=== PATIENT | male | born 1985 | race Two or more races ===

== ENCOUNTER 2020-08-27 13:14 | Emergency (ER) | payer SELFPAY ==
--- NOTE | 2020-08-27 14:44 | CR ---
PROCEDURE INFORMATION: Exam: XR Lumbosacral Spine Exam date and time: 08/27/2020 2:13 PM Age: 35 years old Clinical indication: Injury or trauma; Other: Lifting/twisting injury; Work related; Sprain or strain, lumbar ligaments; Patient HX: Twisting injury, left sided low back pain with left sided radiculapathy. ; Additional info: Low back pain with sciatica TECHNIQUE: Imaging protocol: XR of the lumbosacral spine. Views: 2 or 3 views. COMPARISON: No relevant prior studies available. FINDINGS: Bones/joints: Minimal narrowing with endplate osteophyte formation L4-L5 and L5-S1.. No acute fracture. Normal alignment. Soft tissues: Unremarkable. IMPRESSION: No acute findings.
[2020-08-27] MEDS ORDERED: Ketorolac 30 MG/ML SDV IM ONE (15:16)
--- NOTE | 2020-08-27 15:22 | EDM.PDOC ---
ED HPI GENERAL MEDICAL PROBLEM - General Chief Complaint: Back Pain or Injury Stated Complaint: [id number] PULLED SOMETHING IN BACK AT WORK Time Seen by Provider: 08/27/20 15:05 Source of Information: Reports: Patient, RN, RN Notes Reviewed History Limitations: Reports: No Limitations - History of Present Illness INITIAL COMMENTS - FREE TEXT/NARRATIVE: Vin is a 35 y/o male who presents to the ED via personal vehicle with complaints of low back pain. 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 He notes the pain waxes and wanes in severity and characterizes it as a sharp stab when it is the worst. He has taken one dose of Ibuprofen and one dose of Tylenol which has offered him slight, transient alleviation of pain. He denies history of back injury. He denies loss of motor or sensory function. He denies saddle paraesthesia or incontinence of bowel/bladder. - Related Data Allergies Allergy/AdvReac Type Severity Reaction Status Date / Time egg Allergy Vomiting Verified 08/27/20 15:19 Home Meds: Home Meds . [No Known Home Meds] 08/27/20 [History] ED ROS GENERAL - Review of Systems Review Of Systems: Comprehensive ROS is negative, except as noted in HPI. ED EXAM,LOWER BACK PAIN/INJURY - Physical Exam Exam: See Below Exam Limited By: No Limitations General Appearance: Alert, No Apparent Distress Throat/Mouth: Normal Inspection, Normal Oropharynx, Normal Voice, No Airway Compromise Respiratory/Chest: No Respiratory Distress, Lungs Clear, Normal Breath Sounds, No Accessory Muscle Use, Chest Non-Tender Cardiovascular: Normal Peripheral Pulses, Regular Rate, Rhythm, No Edema, No Gallop, No JVD, No Murmur, No Rub GI/Abdominal: Normal Bowel Sounds, Soft, Non-Tender, No Distention, No Abnormal Bruit, No Mass, Pelvis Stable (Male) Exam: Deferred Rectal (Males) Exam: Deferred Back Exam: Decreased Range of Motion, Muscle Spasm. No: CVA Tenderness (L), CVA Tenderness (R), Paraspinal Tenderness, Vertebral Tenderness Extremities: Normal Inspection, Normal Range of Motion, Non-Tender, No Pedal Edema, Normal Capillary Refill. No: Joint Swelling Neurological: Alert, Normal Mood/Affect, Normal Dorsiflexion, CN II-XII Intact, Normal Plantar Flexion, Normal Gait, Normal Reflexes, No Motor/Sensory Deficits, Oriented x 3, Withdraws to Pain, Straight Leg Raise (L), Straight Leg Raise (R). No: Saddle Anesthesia, Difficulty Walking Psychiatric: Normal Affect, Normal Mood Skin Exam: Warm, Dry, Intact, Normal Color, No Rash Course - Vital Signs Last Recorded V/S: Last Vital Signs Temp 97.7 F 08/27/20 13:36 Pulse 89 08/27/20 16:28 Resp 20 08/27/20 16:28 BP 149/103 H 08/27/20 16:28 Pulse Ox 100 08/27/20 16:28 - Orders/Labs/Meds Meds: Medications Discontinued Medications Generic Name Dose Route Start Last Admin Trade Name Freq PRN Reason Stop Dose Admin Ketorolac Tromethamine 30 mg 08/27/20 15:16 08/27/20 15:44 Ketorolac 30 Mg/Ml Sdv IM 08/27/20 15:17 30 mg ONETIME ONE Administration - Re-Assessments/Exams Free Text/Narrative Re-Assessment/Exam: 08/27/20 Findings of examination and imaging reviewed with patient. Ketorolac 30mg IM administered. Flexeril PO to send home with patient as he states he is a traveling [employer] and does not have a ride home from the ED. Supportive cares for muscle spasm reviewed with patient as well as red flag signs and symptoms which would warrant reevaluation. Patient verbalized understanding and agreement with the plan of care. Departure - Departure Time of Disposition: 16:18 Disposition: Home, Self-Care 01 Condition: Good Clinical Impression: Muscle spasm Low back pain Qualifiers: Chronicity: acute Back pain laterality: left Sciatica presence: with sciatica Sciatica laterality: sciatica of left side Qualified Code(s): M54.42 - Lumbago with sciatica, left side - Discharge Information *PRESCRIPTION DRUG MONITORING PROGRAM REVIEWED*: Not Applicable *COPY OF PRESCRIPTION DRUG MONITORING REPORT IN PATIENT MARY: Not Applicable Instructions: Back Injury Prevention, [id number] Forms: ED Department Discharge Additional Instructions: Rx: ketorolac Rx: cyclobenzaprine 1.) You may alternate ice and heat the the lower back. 2.) You may take acetaminophen (Tylenol) 650mg every six hours, as pain persists. Do not taken NSAIDs while taking ketorolac. 3.) You may apply BioFreeze, or a similar product, to your lower back while pain persists. 4.) Follow up with any primary care facility with no improvement in symptoms in 3-5 days. Sepsis Event Note (ED) - Evaluation Sepsis Screening Result: No Definite Risk
== END 2020-08-27 16:30 | disposition home or self-care (01) ==
LOC: DL.ED 13:14
DX: M54.42 Lumbago with sciatica, left side (principal); M62.830 Muscle spasm of back; Z91.012 Allergy to eggs
CPT/HCPCS: 72100; 96372; 99283; 99283-25; J1885

== ENCOUNTER 2020-09-28 11:45 | Emergency (ER) | payer SELFPAY ==
--- NOTE | 2020-09-28 12:03 | EDM.PDOC ---
ED HPI GENERAL MEDICAL PROBLEM - General Chief Complaint: Laceration Stated Complaint: LACERATED FINGER Time Seen by Provider: 09/28/20 11:50 Source of Information: Reports: Patient History Limitations: Reports: No Limitations - History of Present Illness INITIAL COMMENTS - FREE TEXT/NARRATIVE: This 35 yo male patient was brought to the ED by [facility] due to a laceration to the patient's left distal index finger. The patient reports he was sitting in a chair and grabbed the lever to move the seat when he cut his finger. The patient did bring the tip of his finger to the ED with him. Onset: Today Duration: Minutes: Location: Reports: Upper Extremity, Left Quality: Reports: Ache, Dull Severity: Moderate Improves with: Reports: None Worsens with: Reports: None Context: Reports: Activity Associated Symptoms: Reports: No Other Symptoms Left Upper Finger-Index Pain Score (Numeric/FACES): 8 - Related Data Allergies Allergy/AdvReac Type Severity Reaction Status Date / Time egg Allergy Vomiting Verified 09/28/20 11:52 Home Meds: Home Meds . [No Known Home Meds] 08/27/20 [History] Past Medical History - Past Health History Medical/Surgical History: Denies Medical/Surgical History Social & Family History - Family History Family Medical History: No Pertinent Family History - Tobacco Use Tobacco Use Status *Q: Never Tobacco User Second Hand Smoke Exposure: No - Caffeine Use Caffeine Use: Reports: Soda - Recreational Drug Use Recreational Drug Use: No ED ROS GENERAL - Review of Systems Review Of Systems: Comprehensive ROS is negative, except as noted in HPI. ED EXAM, SKIN/RASH Exam: See Below Exam Limited By: No Limitations General Appearance: Alert, WD/WN, Mild Distress Eye Exam: Bilateral Eye: EOMI, Normal Inspection, PERRL Ears: Normal External Exam, Normal Canal, Hearing Grossly Normal, Normal TMs Nose: Normal Inspection, Normal Mucosa, No Blood Throat/Mouth: Normal Inspection, Normal Lips, Normal Teeth, Normal Gums, Normal Oropharynx, Normal Voice, No Airway Compromise Head: Atraumatic, Normocephalic Neck: Normal Inspection, Supple, Non-Tender, Full Range of Motion Respiratory/Chest: No Respiratory Distress, Lungs Clear, Normal Breath Sounds, No Accessory Muscle Use, Chest Non-Tender Cardiovascular: Normal Peripheral Pulses, Regular Rate, Rhythm, No Edema, No Gallop, No JVD, No Murmur, No Rub GI/Abdominal: Normal Bowel Sounds, Soft, Non-Tender, No Organomegaly, No Distention, No Abnormal Bruit, No Mass (Male) Exam: Deferred Rectal (Males) Exam: Deferred Back Exam: Normal Inspection, Full Range of Motion, NT Extremities: Arm Pain (left distal index finger amputation.) Neurological: Alert, Oriented, CN II-XII Intact, Normal Cognition, Normal Gait, Normal Reflexes, No Motor/Sensory Deficits Psychiatric: Normal Affect, Normal Mood Characteristics: Linear Lymphatic: No Adenopathy Course - Vital Signs Last Recorded V/S: Last Vital Signs Temp 98.4 F 09/28/20 11:52 Pulse 87 09/28/20 11:52 Resp 20 09/28/20 11:52 BP 140/74 09/28/20 11:52 Pulse Ox 98 09/28/20 11:52 - Orders/Labs/Meds Meds: Medications Discontinued Medications Generic Name Dose Route Start Last Admin Trade Name Freq PRN Reason Stop Dose Admin Bupivacaine HCl 10 ml 09/28/20 12:39 Bupivacaine 0.25% 10 Ml Sdv INJECT 09/28/20 12:40 ONETIME ONE Departure - Departure Time of Disposition: 13:30 Disposition: DC/Tfer to Acute Hospital 02 Condition: Fair Clinical Impression: Partial traumatic amputation of finger through phalanx Qualifiers: Encounter type: initial encounter Qualified Code(s): S68.629A - Partial traumatic transphalangeal amputation of unspecified finger, initial encounter - Discharge Information *PRESCRIPTION DRUG MONITORING PROGRAM REVIEWED*: Not Applicable *COPY OF PRESCRIPTION DRUG MONITORING REPORT IN PATIENT MARY: Not Applicable Forms: Interfacility Transfer EMTALA Care Plan Goals: Discussed the patient's history, examination and lab results with Dr. Diego. Dr. Diego accepted the patient to be cared for in the ED at [facility] in [place]. The patient will be transported by [facility]. Sepsis Event Note (ED) - Evaluation Sepsis Screening Result: No Definite Risk - Focused Exam Vital Signs: Vital Signs Temp Pulse Resp BP Pulse Ox 09/28/20 11:52 98.4 F 87 20 140/74 98
[2020-09-28] MEDS ORDERED: Bupivacaine 0.25% 10 ML SDV INJECT ONE (12:39)
--- NOTE | 2020-09-28 12:44 | CR ---
EXAMINATION: Fingers Second Digit Lt F1 SEX: Male AGE: 35 years CLINICAL HISTORY: 35-year-old male left index Fingertip laceration. INTERPRETATION: Abnormal. 1. Amputation nail and soft tissues distally and left index (second) finger. 2. Underlying bony avulsion radial aspect terminal tuft distal phalanx left index finger. 3. No proximal fracture or dislocation this index, adjacent middle finger or thumb left hand. 4. No foreign bodies.
== END 2020-09-28 14:05 ==
LOC: DL.ED 11:45
DX: S68.621A Partial traumatic transphalangeal amputation of left index finger, initial encounter (principal); Z91.012 Allergy to eggs; Z79.899 Other long term (current) drug therapy; W23.0XXA Caught, crushed, jammed, or pinched between moving objects, initial encounter
CPT/HCPCS: 73140; 99284; J3490

== ENCOUNTER 2021-08-16 21:45 | Emergency (ER) | payer OTHER ==
[2021-08-16] MEDS ORDERED: Acetaminophen/oxyCODONE 325-5 MG Tab PO ONE (21:46)
[2021-08-16 22:07] LABS: AMPHETAMINES,URINE NEGATIVE (NEGATIVE); BARBITURATES,URINE NEGATIVE (NEGATIVE); BENZODIAZEPINE,URINE NEGATIVE (NEGATIVE); MDMA (ECSTASY), URINE NEGATIVE (NEGATIVE); METHADONE,URINE NEGATIVE (NEGATIVE); METHAMPHETAMINES,URINE NEGATIVE (NEGATIVE); OPIATES,URINE NEGATIVE (NEGATIVE); OXYCODONE,URINE NEGATIVE (NEGATIVE); PHENCYCLIDINE,URINE NEGATIVE (NEGATIVE); TCA,URINE NEGATIVE (NEGATIVE)
[2021-08-16 22:45] LABS: ANION GAP 12.6 mEq/L (7-13); CHLORIDE,CL 99 mmol/L (98-107); SODIUM,NA 137 mmol/L (136-145)
[2021-08-16] MEDS ORDERED: Ketorolac 30 MG/ML SDV IVPUSH ONE (23:02)
[2021-08-16] MEDS ORDERED: Sodium Chloride 0.9% 1,000 ML IV ONE (23:02)
[2021-08-16] MEDS ORDERED: Ondansetron 4 MG/2 ML SDV IVPUSH ONE (23:02)
[2021-08-16] MEDS ORDERED: Tamsulosin 0.4 MG Cap.ER PO ONE (23:04)
[2021-08-16] MEDS ORDERED: Ciprofloxacin 500 MG Tab PO ONE (23:04)
[2021-08-16] MEDS ORDERED: Acetaminophen/oxyCODONE 325-5 MG Tab ONE (23:31)
== END 2021-08-17 00:11 | disposition home or self-care (01) ==
LOC: DL.ED 21:45
DX: N23 Unspecified renal colic (principal); N20.0 Calculus of kidney; R82.71 Bacteriuria; Z91.012 Allergy to eggs
CPT/HCPCS: 36415; 74176; 80053; 80305-QW; 81001; 83605; 85025; 96374; 96375; 99284; 99284-25; A9270-GY; J1885; J2405; J7030